=== PATIENT | female | born 1980 | race African-American/Black ===

== ENCOUNTER → 2019-03-18 | Outpatient (CLI) | payer MEDICAID, OTHER ==
[2014-05-09 22:04] VITALS: BP 161/82
--- NOTE | 2019-03-18 09:48 | KCIC ---
INDICATION: Partial hysterectomy 2007. Pelvic pain COMPARISON: None available. TECHNIQUE: Transabdominal and endovaginal sonography was performed FINDINGS: There has been a hysterectomy and the uterus is not seen. The right ovary measures 4.6 x 2.1 x 3.3 cm on endovaginal images. A 2 cm simple cyst/follicle is seen within the right ovary. Flow seen to the right ovary. The left ovary measures 3.8 x 2.1 x 3.2 cm on endovaginal images. There are 2 heterogeneously hypoechoic lesions within the left ovary, possibly hemorrhagic/proteinaceous cysts measuring 1.8 cm and 2.1 cm. Flow seen to the left ovary. There is no free fluid. IMPRESSION: 1. Changes of partial hysterectomy are seen with absent uterus. 2. No evidence for ovarian torsion. 3. There are 2 heterogeneously hypoechoic lesions within the left ovary, possibly hemorrhagic cyst. Recommend follow-up ultrasound in 4-6 weeks to further assess. Electronically signed by: Jermaine Huizar MD (03/18/2019 9:45 AM) [id number]
== END | disposition home or self-care (01) ==
LOC: KCIC US 08:00
PROVIDERS: ATTEND Nurse Practitioner Gerontology
DX: N83.8 Other noninflammatory disorders of ovary, fallopian tube and broad ligament (principal); Z90.710 Acquired absence of both cervix and uterus
CPT/HCPCS: 76830; 76856

== ENCOUNTER → 2021-07-18 | Outpatient (CLI) | payer MEDICAID, OTHER ==
[2014-05-09 22:04] VITALS: BP 161/82
--- NOTE | 2021-07-19 13:17 | SLEEP ---
DATE OF STUDY: 07/18/2021 POLYSOMNOGRAM REPORT OBJECTIVE: The patient is a 40-year-old female with trouble falling asleep and staying asleep, possible sleep paralysis, nightmares, restless legs, snoring, fatigue, observed apnea, excessive daytime somnolence, awakening short of air. Height 5 feet 3 inches, weight 232 pounds, body mass index 41. Teachey sleep score 16. INTERPRETATION: Sleep architecture is characterized by sleep efficiency of 87% across the 9.3 hours of recording time. There are normal stage volumes for age, especially a large amount of REM at the end of the night when the patient is on treatment. Sleep onset latency is 2.5 minutes. There are a total of 110 respiratory events for an overall apnea-hypopnea index of 13.5 events per hour of sleep with a minimum oxygen saturation of 79%. Pre-treatment, the apnea-hypopnea index is 16.4 events per hour of sleep. There are also respiratory event-related arousals and signs of upper airway resistance syndrome. The patient is started on CPAP and at a setting of 9 cm, the apnea-hypopnea index is still elevated at 9.2 events per hour of sleep. However, most of these apneas are central in nature. There are a large amount of periodic limb movements of sleep at the rate of 86 events per hour, 2 events per hour associated with arousal. No cardiac arrhythmias are seen. IMPRESSION: Abnormal polysomnogram showing obstructive sleep apnea and hypopnea treatable using 9 cm of continuous positive airway pressure, Respironics DreamWear nasal pillows, medium size. RECOMMENDATIONS: 1. The patient should be established on the setting of CPAP. 2. If hypersomnia persists, the patient could be considered for a repeat study for BiPAP titration with the use of a rate to treat central apneas, and one should also keep in mind the possibility of narcolepsy that would best be evaluated for with a multiple sleep latency test. 3. The patient should avoid sedatives and alcohol and pursue weight loss. Thank you very much for letting us help with the patient's care. TRENT DR: Eric TID: [id number] CC: ABIEL LUO MD
== END ==
LOC: SLPLAB 18:51
PROVIDERS: ATTEND Family Medicine
DX: G47.33 Obstructive sleep apnea (adult) (pediatric) (principal)
CPT/HCPCS: 95810

== ENCOUNTER → 2021-07-19 | Outpatient (CLI) | payer MEDICAID ==
[2014-05-09 22:04] VITALS: BP 161/82
--- NOTE | 2021-07-20 10:30 | KCIC ---
Examination: Esophagram. History: Difficulty swallowing Comparison: None available Findings/ impression: Esophagram shows normal esophageal motility and distention. There is no stricture, extrinsic compress ion, mass, mucosal defect, gastroesophageal reflux, or hiatal hernia. A 13 mm capsule is swallowed an d passes the GE junction without difficulty. Total fluoroscopic time 1 minute 49 seconds. Total fluoroscopic images 9 Electronically signed by: Terrell Garvin MD (07/20/2021 10:27 AM) [id number]
== END ==
LOC: KCIC 08:11
PROVIDERS: ATTEND Internal Medicine Gastroenterology
DX: R13.10 Dysphagia, unspecified (principal)
CPT/HCPCS: 74220

== ENCOUNTER → 2021-08-07 | Outpatient (CLI) | payer MEDICAID ==
[2014-05-09 22:04] VITALS: BP 161/82
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
--- NOTE | 2021-08-07 13:43 | KCIC ---
EXAM: XR PELVIS 1-2V 08/07/2021 9:50 AM CLINICAL INDICATION: Eval for implant prior to MRI COMPARISON: None available TECHNIQUE: AP view of the pelvis FINDINGS: No acute fracture. Alignment is normal. There is mild medial left hip joint space narrowin g. Right hip joint space is maintained. Pubic symphysis and sacroiliac joints are normal. Lower lumba r spine is unremarkable. There are surgical clips along the right side of the lumbosacral junction. P robable phleboliths in the pelvis. IMPRESSION: No acute abnormality. Electronically signed by: Yvonne Dallas MD (08/07/2021 1:41 PM) [id number]
== END ==
LOC: KCIC MRI 08:29
PROVIDERS: ATTEND Family Medicine
DX: M47.816 Spondylosis without myelopathy or radiculopathy, lumbar region (principal); M51.27 Other intervertebral disc displacement, lumbosacral region; M48.8X7 Other specified spondylopathies, lumbosacral region; R60.0 Localized edema; M25.852 Other specified joint disorders, left hip; M47.812 Spondylosis without myelopathy or radiculopathy, cervical region; M25.78 Osteophyte, vertebrae; Z98.890 Other specified postprocedural states
CPT/HCPCS: 72141; 72148; 72170

== ENCOUNTER → 2021-08-09 | Day surgery (SDC) | payer MEDICAID ==
[~2021-08-09] VITALS: Ht 160 cm; Wt 110.0 kg
[~2021-08-09] MED LIST: PROPOFOL 10 MG/ML (20ML) VIAL. IV ONE
[2021-08-09] MEDS: IV RINGERS,LACTATED 1000ML 1,000 ML IV SCH (09:35)
[2021-08-09 09:41] VITALS: BP 137/86
[2021-08-09] MEDS: ALBUTEROL SULFATE 2.5 MG/3 ML NEBU. NEB ONE (09:53)
[2021-08-09 10:40] VITALS: BP 167/105
== END | disposition home or self-care (01) ==
LOC: ENDOS 08:51
PROVIDERS: ATTEND Internal Medicine Gastroenterology
DX: R13.10 Dysphagia, unspecified (principal); K29.50 Unspecified chronic gastritis without bleeding; K21.00 Gastro-esophageal reflux disease with esophagitis, without bleeding; K31.89 Other diseases of stomach and duodenum; E66.3 Overweight; I10 Essential (primary) hypertension; J45.909 Unspecified asthma, uncomplicated; G47.30 Sleep apnea, unspecified; M19.90 Unspecified osteoarthritis, unspecified site; F41.9 Anxiety disorder, unspecified; F32.9 Major depressive disorder, single episode, unspecified; F17.210 Nicotine dependence, cigarettes, uncomplicated; Z90.710 Acquired absence of both cervix and uterus; Z98.890 Other specified postprocedural states; Z88.0 Allergy status to penicillin; Z91.040 Latex allergy status; Z88.2 Allergy status to sulfonamides; Z88.6 Allergy status to analgesic agent; Z88.1 Allergy status to other antibiotic agents; Z88.8 Allergy status to other drugs, medicaments and biological substances; Z20.822 Contact with and (suspected) exposure to COVID-19
CPT/HCPCS: 43239; 43450; 87426; 88305; 88342; 94640; J2704; J7613

== ENCOUNTER → 2021-09-13 | Outpatient (CLI) | payer MEDICAID ==
[2021-08-09 10:40] VITALS: BP 167/105
[~2021-09-13] MED LIST changes: +ALBU2.5V8 IH; +BUDE10.2 IH; +CYCL10TA19 PO; +DIAZ5TAB4 PO; +ELAG150T PO; +FLUT16SP NS; +LORA10TA65 PO; +MELA10CA PO; +MELO15TA23 PO; +MIRT7.5T8 PO; +MONT10TA49 PO; +MULT-445 PO; +OLOP2.5D12 EACHEYE; +OMEP20TA63 PO; -PROPOFOL 10 MG/ML (20ML) VIAL. IV ONE; +TRIA1TAB5 PO; +VENL100T PO
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
== END | disposition home or self-care (01) ==
LOC: PNCL 11:40
PROVIDERS: ATTEND Anesthesiology
DX: M79.601 Pain in right arm (principal); M79.604 Pain in right leg; M54.2 Cervicalgia; M54.50 Low back pain, unspecified; I10 Essential (primary) hypertension; G47.30 Sleep apnea, unspecified; E66.9 Obesity, unspecified; M19.90 Unspecified osteoarthritis, unspecified site; F41.9 Anxiety disorder, unspecified; F32.9 Major depressive disorder, single episode, unspecified; F17.210 Nicotine dependence, cigarettes, uncomplicated; Z88.0 Allergy status to penicillin; Z91.040 Latex allergy status; Z88.2 Allergy status to sulfonamides; Z88.6 Allergy status to analgesic agent; Z88.1 Allergy status to other antibiotic agents; Z90.710 Acquired absence of both cervix and uterus; Z98.890 Other specified postprocedural states; Z79.899 Other long term (current) drug therapy
CPT/HCPCS: 99214; G0463